=== PATIENT | male | born 1945 | race Caucasian/White ===

== ENCOUNTER 2018-02-03 09:43 | Outpatient (CLI) | payer MEDICARE ==
[2018-02-03] VITALS (18 sets, daily range): BP systolic 106–129; BP diastolic 69–88
[~2018-02-03 09:43] MED LIST: ASCO-336 PO; CALC-793 PO; CYCL5TAB PO; DILT120C19 PO; FLUO20CA39 PO; LISI1TAB9 PO; SALM1CAP4 PO; TERA5CAP4 PO; VITA-268 PO
== END 2018-02-03 23:59 | disposition home or self-care (01) ==
LOC: CARD DIAG 09:43
PROVIDERS: ATTEND Physician Assistant
DX: R55 Syncope and collapse (principal); I10 Essential (primary) hypertension; J45.909 Unspecified asthma, uncomplicated; Z96.652 Presence of left artificial knee joint; Z87.891 Personal history of nicotine dependence; Z72.89 Other problems related to lifestyle
CPT/HCPCS: 93660

== ENCOUNTER 2019-06-30 15:25 | Outpatient (CLI) | payer MEDICARE ==
[~2019-06-30 15:25] MED LIST changes: +LISI1TAB32 PO; -LISI1TAB9 PO
== END 2019-06-30 23:59 | disposition home or self-care (01) ==
LOC: RAD 15:25
PROVIDERS: ATTEND Otolaryngology
DX: R13.12 Dysphagia, oropharyngeal phase (principal); R47.1 Dysarthria and anarthria; R49.0 Dysphonia; G20 Parkinson's disease
CPT/HCPCS: 74220; 74230